=== PATIENT | male | born 1955 | race Two or more races ===

== ENCOUNTER → 2017-01-02 | Outpatient (CLI) | payer OTHER ==
--- NOTE | 2017-01-02 16:30 | RADRPT ---
PROCEDURE: Right knee radiographs. CLINICAL INDICATION: Right knee pain. TECHNIQUE: Four views. Weight bearing. Frontal, lateral, oblique, and patellar view. COMPARISON: No prior studies are available for comparison. FINDINGS: There is no fracture or dislocation. The soft tissues are normal. There are degenerative changes with osteophytes arising from all 3 joint compartment margins. There is medial and lateral joint compartment narrowing and subarticular sclerosis. There is medial joint compartment deformity. There is no lytic or blastic lesion. There is no radiopaque foreign body. IMPRESSION: 1. Moderate to severe degenerative changes of the right knee. 2. No acute abnormality. RPTAT: QQ .Damien Ceron MD, MD Date Time Electronically viewed and signed by .Damien Ceron MD, MD on 01/02/2017 16:30 .R/
--- NOTE | 2017-01-03 04:16 | HKNOTE ---
DATE OF SERVICE: 01/02/2017 CHIEF COMPLAINT: Right knee pain. HISTORY OF PRESENT ILLNESS: This is a 61-year-old male who is complaining of chronic right knee daniel n. He had previous meniscectomy of the right knee 25 years ago. He states that the pain is constan t. He takes ibuprofen for pain control. He does not use any assistive devices. He denies any groi n or back pain. He has had previous physical therapy with no pain relief. He denies any history of trauma. He has no other complaints. GAIT: Antalgic gait, no use of assist device. RIGHT KNEE EXAMINATION: Neutral alignment. Tender over the medial and lateral joint line. Previou s incisions, both medial and lateral aspect of the knee have healed. 0 to 120 degrees range of edward on, stable to varus valgus stress, negative Mercedes, negative anterior drawer, negative posterior dr awer. Motor strength 5/5 quadriceps, hamstrings, tibialis anterior, gastroc soleus. IMAGING: X-rays right knee: Four views of the right knee demonstrate tricompartmental osteoarthrit is with [id number] arthritic changes of all 3 compartments. There are marginal osteophytes and aguayo bchondral sclerosis. IMPRESSION: This is a 61-year-old man with right knee tricompartmental osteoarthrosis who has faile d nonoperative management. PLAN: I discussed treatment options with the patient. I discussed continuation of further nonopera tive treatments as well as a right total knee arthroplasty. I discussed the risks associated with a right total knee arthroplasty. He would like to proceed with surgery. We will request authorizati on for right total knee arthroplasty. He will follow up pending approval of the surgery. Dictated By: OSCAR MOSES/MARCIA Conf#: [id number] DID#: [id number]
== END | disposition home or self-care (01) ==
LOC: HKI 14:24
PROVIDERS: ATTEND Orthopaedic Surgery Adult Reconstructive Orthopaedic Surgery
DX: M17.11 Unilateral primary osteoarthritis, right knee (principal)
CPT/HCPCS: G0463

== ENCOUNTER → 2017-03-24 | Outpatient (CLI) | END | disposition home or self-care (01) ==

== ENCOUNTER 2017-04-07 05:53 | Inpatient (IN) | END 2017-04-14 14:05 | disposition home health service (06) | DRG 470 ==

== ENCOUNTER → 2017-04-22 | Outpatient (CLI) | END | disposition home or self-care (01) ==

== ENCOUNTER → 2017-05-19 | Outpatient (CLI) | END | disposition home or self-care (01) ==

== ENCOUNTER 2017-06-03 16:57 | Emergency (ER) | END 2017-06-03 20:33 | disposition home or self-care (01) ==

== ENCOUNTER → 2017-06-12 | Outpatient (CLI) | END | disposition home or self-care (01) ==

== ENCOUNTER → 2017-06-24 | Outpatient (CLI) | END | disposition home or self-care (01) ==

== ENCOUNTER 2017-06-25 06:26 | Day surgery (SDC) | END 2017-06-25 11:40 | disposition home or self-care (01) ==

== ENCOUNTER → 2017-07-11 | Outpatient (CLI) | END | disposition home or self-care (01) ==

== ENCOUNTER → 2017-10-20 | Outpatient (CLI) | END | disposition home or self-care (01) ==